=== PATIENT | female | born 1955 | race Caucasian/White ===

== ENCOUNTER → 2022-07-05 | Outpatient (CLI) | payer MEDICARE ==
[~2022-07-05] MED LIST: CATHETER FLUSH 10 ML SYR IVP PRN; REGADENOSON 0.4 MG/5 ML SYR (LEXISCAN) IV ONE
[2022-07-05 12:54] VITALS: BP 155/91
--- NOTE | 2022-07-06 07:48 | Cardiology Stress Test Report ---
Stress Test Report Date of Procedure/Referring: Date of Procedure: Jul 05, 2022 PCP Arnulfo Pedraza MD Admitting Physician Admitting Physician: Attending Physician: Corazon Salamanca MD Indications: CP Baseline Heart Rate: 75 Baseline Blood Pressure: Blood Pressure Systolic: 155 Blood Pressure Diastolic: 91 Baseline Vitals Vital Signs Date Time Temp Pulse Resp B/P (MAP) Pulse Ox O2 Delivery O2 Flow Rate FiO2 07/05/22 12:54 75 155/91 (112) 98 Baseline EKG: Baseline EKG: NSR Summary After explaining the procedure to the patient, she signed a consent and then brought to the stress nuclear laboratory. Patient received 0.4 mg Lexiscan for stress test, ECG, heart rate and blood pressure were monitored continuously. Resting and stress dose of radio tracer were injected, imaging was acquired and reviewed in short axis, horizontal long axis and vertical long axis views. TID: 1.14 SSS: 10 SDS: 4 EF: 52 1. Patient tolerated Lexiscan well 2. Breast attenuation with reversible ischemia involving the mid to apical inferior wall and inferoseptum 3. Normal left ventricular size, ejection fraction 52% CORAZON SALAMANCA MD Jul 06, 2022 07:48
== END ==
LOC: CARD 10:14
PROVIDERS: ATTEND Internal Medicine Cardiovascular Disease
DX: I10 Essential (primary) hypertension (principal); I25.10 Atherosclerotic heart disease of native coronary artery without angina pectoris
CPT/HCPCS: 78452; 93017; A9502; C8929; 93306

== ENCOUNTER 2022-07-19 10:58 | Day surgery (SDC) | payer MEDICARE ==
[~2022-07-19] VITALS: Ht 165.1 cm; Wt 114.3 kg
[2022-07-19] MEDS ORDERED: NS IV 1000 ML 1,000 ML IV SCH ×2 (11:15→13:30)
[2022-07-19] MEDS ORDERED: LIDOCAINE 1% INJ 30 ML (XYLOCAINE) VIAL ONE (11:18)
[2022-07-19] MEDS ORDERED: HEParin (CATH LAB) 2,000 ML IV ONE (11:19)
[2022-07-19] MEDS ORDERED: NS IV 1000 ML 1,000 ML ONE (11:19)
[2022-07-19 11:31] VITALS: BP 148/123
[2022-07-19 11:42] LABS: BILIRUBIN,URINE NEGATIVE (NEGATIVE); CLARITY,URINE CLEAR; COLOR,URINE YELLOW; GLUCOSE, URINE (UA) NEGATIVE (NEGATIVE); HEMATOCRIT 47 % (35-52); HEMOGLOBIN 15.7 g/dL (11.5-16.0); KETONES,URINE NEGATIVE (NEGATIVE); LEUKOCYTE ESTERASE ,URINE NEGATIVE (NEGATIVE); MEAN CORPUSCULAR HEMOGLOBIN 30 pg (25-34); MEAN CORPUSCULAR HGB CONC 33 g/dL (32-36); MEAN CORPUSCULAR VOLUME 91 fL (80-99); MEAN PLATELET VOLUME 9.3 fL (9.0-12.2); NITRITE,URINE NEGATIVE (NEGATIVE); PLATELET COUNT 275 10^3/uL (130-400); PROTEIN,URINE NEGATIVE (NEGATIVE); WHITE BLOOD COUNT 8.4 10^3/uL (4.3-11.0)
--- NOTE | 2022-07-19 11:42 | Diagnostic Imaging Report ---
INDICATION: Abnormal stress test. FINDINGS: Heart and lungs appear normal. No failure, effusion, or pneumothorax. IMPRESSION: Negative. Dictated by: Dictated on workstation # [id number]
[2022-07-19 11:59] LABS: BACTERIA,URINE NEGATIVE /HPF
[2022-07-19 12:05] LABS: INR 0.9 (0.8-1.4); PROTHROMBIN TIME PATIENT 12.6 SEC (12.2-14.7)
[2022-07-19 12:06] LABS: ALBUMIN 4.3 GM/DL (3.2-4.5); BILIRUBIN,TOTAL 0.5 MG/DL (0.1-1.0); CALCIUM 9.5 MG/DL (8.5-10.1); CREATININE SERUM 0.97 MG/DL (0.60-1.30); POTASSIUM 4.3 MMOL/L (3.6-5.0)
[2022-07-19] MEDS ORDERED: GABA-490 PO (12:19)
[2022-07-19] MEDS ORDERED: MELO15TA39 PO (12:19)
[2022-07-19] MEDS ORDERED: MEMA28CA16 PO (12:19)
[2022-07-19] MEDS ORDERED: ATOR20TA66 PO (12:19)
[2022-07-19] MEDS ORDERED: MIRA50TA PO (12:19)
[2022-07-19] MEDS ORDERED: CALC600T91 PO (12:19)
[2022-07-19] MEDS ORDERED: MULT-1136 PO (12:19)
[2022-07-19] MEDS ORDERED: SERT-413 PO (12:20)
[2022-07-19] MEDS ORDERED: ASPI-1238 PO (12:20)
[2022-07-19] MEDS ORDERED: OMEP40CA6 PO (12:20)
[2022-07-19] MEDS ORDERED: RIVA4.5C17 PO (12:20)
[2022-07-19] MEDS ORDERED: ASCO500T17 PO (12:20)
[2022-07-19] MEDS ORDERED: IBUP200C92 PO (12:20)
[2022-07-19] MEDS ORDERED: TRIA1CAP84 PO (12:20)
[2022-07-19] MEDS ORDERED: CHOL500044 PO (12:20)
[2022-07-19] MEDS ORDERED: PHYT100T PO (12:23)
--- NOTE | 2022-07-19 12:32 | Cardiac Procedure Note-CS/ASA ---
Pre-Procedure Note Pre-Op Procedure Note Date of Available H&P: Jul 10, 2022 Date H&P Reviewed: Jul 19, 2022 Time H&P Reviewed: 12:31 History & Physical: H&P Reviewed, Patient Examed, No changes noted Pre-Operative Diagnosis: Coronary artery disease Conscious Sedation Pre-Proced Time 12:31 ASA Score 3 For ASA 3 and 4: Consider anesthesia and medical clearance. Also, for patients with a history of failed moderate sedation consider anesthesia. Airway Lungs Heart ASA score ASA 1: a normal healthy patient ASA 2: a patient with a mild systemic disease (mid diabetes, controlled hypertension, obesity ASA 3: a patient with a severe systemic disease that limits activity (angina, COPD, prior Myocardial infarction) ASA 4: a patient with an incapacitating disease that is a constant threat to life (CHF, renal failure) ASA 5: a moribund patient not expected to survive 24 hrs. (ruptured aneurysm) ASA 6: a declared brain- patient whose organs are being harvested. For emergent operations, add the letter E after the classification Mallampati Classification Grade 3 Sedation Plan Analgesia, Amnesia, Plan communicated to team members, Discussed options with patient/fam, Discussed risks with patient/fam The patient is an appropriate candidate to undergo the planned procedure, sedation, and anesthesia. The patient immediately re-assessed prior to indication. CORAZON CURTIS MD Jul 19, 2022 12:31
[2022-07-19] MEDS ORDERED: NITRO DRIP 25000 MCG/D5W 250 ML IV ONE (12:37)
[2022-07-19] MEDS ORDERED: MIDAZOLAM 2 MG/2 ML (VERSED) VIAL ONE (12:37)
[2022-07-19] MEDS ORDERED: VERAPAMIL 5 MG/2 ML (CALAN) VIAL IV ONE (12:37)
[2022-07-19] MEDS ORDERED: fentaNYL INJ 100 MCG/2 ML AMP ONE (12:37)
[2022-07-19] MEDS ORDERED: HEParin 1000 UNIT/ML (10ML VIAL) FOR BOLUS ONE (12:37)
--- NOTE | 2022-07-19 13:17 | Discharge Inst-Post CATH ---
Discharge Inst-CATH/EP Problems Reviewed?: Yes Post Cardiac Cath/EP D/C Inst Follow Up/Plan Appointment with Dr. Salamanca's office in 2 to 4 weeks <b>CARDIAC CATH/EP PROCEDURE DISCHARGE INSTRUCTIONS</b> ACTIVITY * Go Home directly and rest. * Limit activity of the leg (or wrist if it was used) for 7 days including aer obics, swimming, jogging, bicycling, etc. * Restrict stair-climbing for 7 days if possible, if not, climb up with your non-cath leg, then bring together on the same step. * Avoid lifting, pushing, pulling or excessive movement of the affected extremi ty for 7 days. * Customary sexual activity may be resumed after 2 days-use caution not to use a position that strains or causes pain to the affected extremity. * No driving for 24 hours. * NO SMOKING. * Avoid straining for bowel movements for 7 days. * Gentle walking on level ground is allowed. * Returning to work will depend on the type of procedure and the results. Your doctor will discuss this with you. CALL YOUR DOCTOR FOR ANY OF THE FOLLOWING: *If bleeding from the puncture site occurs- Apply gentle pressure to site with clean cloth and call your doctor or EMS. * If a knot or lump forms under the skin, increases in size, or causes pain. * If bruising appears to be worsening or moving further down your leg instead of disappearing. * Temperature above 101 F. CARE OF YOUR GROIN INCISION; * Bruising or purple discoloration of the skin near the puncture site is common. * You may shower only, no bathtub bathing for 5 days. Be careful to avoid slipping as your leg may feel stiff. * If a closure device was used on your femoral artery, please see the attached guide regarding care of the device and your leg. * Leave dressing on FOR 24 hours. CARE OF YOUR WRIST INCISION; * Bruising or purple discoloration of the skin near the puncture site is common. * You may shower. * DO NOT submerge wrist. * Leave dressing on FOR 24 hours. CORAZON SALAMANCA MD Jul 19, 2022 13:17
--- NOTE | 2022-07-19 13:21 | Cardiac Cath Report ---
Cardiac Cath Report Physician (s)/Artifacts Conservator (s) Physician CORAZON CURTIS MD Pre-Procedure Diagnosis Pre-Procedure Diagnosis: Coronary artery disease Post-Procedure Note Procedure Start Date: Jul 19, 2022 Name of Procedure: Left heart catheterization Findings/Procedure Note PROCEDURE NOTE: 66-year-old lady with history of hypertension, hyperlipidemia, had an abnormal stress test, scheduled for cardiac catheterization possible PTCA. After explaining the procedure to the patient, all pros and cons were explained, all questions were answered. The patient signed the consent and then she was placed on the cardiac catheterization laboratory. Groin was prepped SL fashion local anesthesia was used. Sheath placed in the right radial artery, [place] catheter was advanced to the left ventricular cavity, pressure was measured, pullback LV to aorta was done, engaged the right and left coronary system. Angiogram was done. At the end of the procedure the sheath was removed. Vascular band was used FINDINGS: Hemodynamics LV 113/8 Aorta no significant gradient during pullback ANATOMY: Left Main is free of obstructive disease Left Anterior Descending has mild irregularities with no obstructive disease Left Circumflex is dominant artery with mild irregularity with no obstructive disease Right Coronary Artery is nondominant artery with no obstructive disease LV Gram was not done, pressure was measured CONCLUSION: 1. Dominant circumflex system with mild irregularity in the coronary system, no significant obstructive disease was noted 2. Normal left ventricular end-diastolic pressure DISCUSSION AND RECOMMENDATION: No intervention is warranted Anesthesia Type: Conscious Sedation Estimated blood loss (mL): 10 ml Contrast Amount: 24 ml Total Radiation Dose: 188 mGy Post-Procedure Diagnosis Post-operative diagnosis: Chest pain Coronary artery disease Hypertension Hyperlipidemia. CORAZON CURTIS MD Jul 19, 2022 13:21
== END 2022-07-19 17:00 | disposition home or self-care (01) ==
LOC: CATH 10:58 → CSD 13:42 → CATH 17:00
PROVIDERS: ATTEND Internal Medicine Cardiovascular Disease
DX: I25.10 Atherosclerotic heart disease of native coronary artery without angina pectoris (principal); I10 Essential (primary) hypertension; F17.210 Nicotine dependence, cigarettes, uncomplicated; I65.23 Occlusion and stenosis of bilateral carotid arteries; G47.33 Obstructive sleep apnea (adult) (pediatric); R60.0 Localized edema; Z79.899 Other long term (current) drug therapy; E78.2 Mixed hyperlipidemia
CPT/HCPCS: 71045; 80053; 80061; 81000; 85027; 85610; 85730; 87081; 93005; 93458; C1894; 36415

== ENCOUNTER → 2022-11-28 | Outpatient (CLI) | payer MEDICARE ==
[~2022-11-28] MED LIST changes: +ASCO500T17 PO; +ASPI-1238 PO; +ATOR20TA66 PO; +CALC600T91 PO; -CATHETER FLUSH 10 ML SYR IVP PRN; +CHOL500044 PO; +GABA-490 PO; +IBUP200C92 PO; +MELO15TA39 PO; +MEMA28CA16 PO; +MIRA50TA PO; +MULT-1136 PO; +OMEP40CA6 PO; +PHYT100T PO; -REGADENOSON 0.4 MG/5 ML SYR (LEXISCAN) IV ONE; +RIVA4.5C17 PO; +SERT-413 PO; +TRIA1CAP84 PO
--- NOTE | 2022-11-28 15:39 | Diagnostic Imaging Report ---
EXAMINATION: Lumbar spine radiographs, 3 views. COMPARISON: None. HISTORY: 67-year-old female, low back pain. FINDINGS: There is a thoracolumbar dextroscoliosis. There are multilevel endplate degenerative related changes of the thoracolumbar spine. There is moderate to severe disc height loss at L2-L3. There is moderate to severe disc height loss at L5-S1. There is no identified compression deformity or fracture. The sacroiliac joints are unremarkable in appearance. There are vascular calcifications. IMPRESSION: 1. Thoracolumbar dextroscoliosis. 2. Multilevel disc degenerative changes of the lumbar spine most notable at L2-L3. 3. No identified compression deformity or fracture. Dictated by: Dictated on workstation # [id number]
== END ==
LOC: RAD FS 11:18
PROVIDERS: ATTEND Nurse Practitioner Family
DX: M51.36 Other intervertebral disc degeneration, lumbar region (principal); M41.85 Other forms of scoliosis, thoracolumbar region
CPT/HCPCS: 72100

== ENCOUNTER → 2023-04-06 | Outpatient (CLI) | payer MEDICARE ==
--- NOTE | 2023-04-06 16:14 | Diagnostic Imaging Report ---
PROCEDURE: MRI lumbar spine. TECHNIQUE: Multiplanar, multisequence MRI of the lumbar spine was performed without contrast. INDICATION: Chronic low back pain Lumbar spine MRI without contrast 04/06/2023 COMPARISON: None. FINDINGS: There is T2 hyperintensity along the endplates at the L2-L3 level with edema along the inferior endplate of L2 and the superior endplate at L3 more pronounced at L3. There is either a large Schmorl's node along the superior endplate versus a mild compression deformity. If this does represent a compression fracture it involves approximately 10% of the height of the vertebral body. Correlate with patient's symptoms. Remaining vertebral body heights are maintained with no subluxations. The tip of the conus is unremarkable in appearance and location. L1-L2: There is moderate bilateral neural foraminal narrowing with the central canal patent. L2-L3: There is intervertebral disc space narrowing, disc desiccation with minimal left paracentral broad-based bulging disc. There is bilateral facet hypertrophy. No central stenosis. There is moderate left and [id number] right neural foraminal narrowing L3-L4: There is minimal broad-based bulging disc material with bilateral facet and ligamentum flavum hypertrophy. Findings cause minimal narrowing of the lateral recesses without central stenosis. There is severe bilateral neural foraminal narrowing. L4-L5: There is disc desiccation with mild broad-based bulging disc material. There is bilateral facet and ligamentum flavum hypertrophy with mild central stenosis. There is moderate to severe bilateral neural foraminal narrowing. L5-S1: There is intervertebral disc space narrowing and disc desiccation and a left paracentral broad-based bulging disc with bilateral facet and ligamentum flavum hypertrophy. Findings cause moderate central stenosis with narrowing of the left lateral recess. There is severe bilateral neural foraminal narrowing. Visualized intra-abdominal structures unremarkable. IMPRESSION: 1. Multilevel degenerative findings, as detailed above. 2. Minimal questioned loss of height along the superior endplate at L3 which could be due to a large Schmorl's node but given the surrounding edema, a mild compression deformity not excluded. Correlate with patient symptoms. Dictated by: Dictated on workstation # [id number]
--- NOTE | 2023-04-06 22:30 | Diagnostic Imaging Report ---
PROCEDURE: MR imaging cervical spine without contrast. TECHNIQUE: Multiplanar, multisequence MR imaging of the cervical spine was performed without contrast. INDICATION: Cervical spondylosis. COMPARISON: None. FINDINGS: Cervical spinal cord has a normal volume morphology and normal signal intensity. There is no paravertebral mass, hemorrhage or acute fluid collection. The alignment is normal. The vertebral statures are normal. The marrow signal intensity normal. No bone contusion, marrow edema or fracture pattern. Craniocervical relationship of C1-C2, C2-C3 and C3-C4 levels and discs normal. No stenosis. C4-C5: There is disc stature loss, desiccation, bulge and endplate osteophytes. Osteophyte disc material indents the ventral thecal sac with moderate spinal canal stenosis and mild left greater than right foraminal narrowing. C5-C6: Mild degenerative disc and endplate changes are present without disc displacement or resultant stenosis. C6-C7: There is slight disc desiccation and mild anterior greater than posterior disc bulge. There is a mild degree of left foraminal narrowing. The canal shows no significant stenosis. C7-T1: This level and disc normal. No stenosis. IMPRESSION: Mid to lower cervical spondylosis with mild to moderate stenoses of canal and foramina, detailed above, however normal alignment and normal cord. No acute bony abnormality. Dictated on workstation # [id number]
== END ==
LOC: RAD 13:09
PROVIDERS: ATTEND Nurse Practitioner
DX: M47.812 Spondylosis without myelopathy or radiculopathy, cervical region (principal); M48.02 Spinal stenosis, cervical region; M50.321 Other cervical disc degeneration at C4-C5 level; M50.323 Other cervical disc degeneration at C6-C7 level; M48.062 Spinal stenosis, lumbar region with neurogenic claudication; M51.36 Other intervertebral disc degeneration, lumbar region; M47.816 Spondylosis without myelopathy or radiculopathy, lumbar region
CPT/HCPCS: 72141; 72148

== ENCOUNTER 2023-07-23 12:35 | Emergency (ER) | payer MEDICARE ==
[~2023-07-23] VITALS: Ht 165.1 cm; Wt 118.6 kg
[~2023-07-23 12:35] MED LIST changes: -GABA-490 PO; +GABA-491 PO
[2023-07-23] MEDS ORDERED: NS IV 500 ML 500 ML IV STA (13:02)
[2023-07-23 13:11] LABS: BILIRUBIN,URINE NEGATIVE (NEGATIVE); CLARITY,URINE CLEAR; COLOR,URINE YELLOW; GLUCOSE, URINE (UA) NEGATIVE (NEGATIVE); KETONES,URINE NEGATIVE (NEGATIVE); LEUKOCYTE ESTERASE ,URINE NEGATIVE (NEGATIVE); NITRITE,URINE NEGATIVE (NEGATIVE); PROTEIN,URINE NEGATIVE (NEGATIVE)
--- NOTE | 2023-07-23 13:12 | ED General ---
General Chief Complaint: Dizziness/Syncope Stated Complaint: DIZZINESS; LOW BP Source of Information: Patient Exam Limitations: No Limitations History of Present Illness Date Seen by Provider: Jul 23, 2023 Time Seen by Provider: 12:37 Initial Comments 67-year-old female with past medical history most notable for demetia coming in due to lightheadedness, room spinning at times, and ear ringing. Started this morning around 3 AM. She says the ringing in her right ear is pretty normal as she has a hole in that tympanic membrane, but the ringing in the left ear is new. She has a very mild headache she states. Denies any weakness, numbness, current vision changes, voice changes, or any other concerns. She was able to walk to her car, drive here, and then walked back to the room in the ER. Denies any significant pain anywhere. I discussed the case with the patient's son, who she lives with. He states she gets this way every once in a while if she misses a couple doses of her medications. Allergies and Home Medications Allergies Coded Allergies: No Known Drug Allergies (Unverified , 07/23/23) Patient Home Medication List Home Medication List Reviewed: Yes Ascorbic Acid (Vitamin C) 500 Mg Tablet, 500 MG PO DAILY, (Reported) Entered as Reported by: CHRISTA SHI on 07/19/22 1220 Aspirin (Aspirin EC) 81 Mg Tablet.dr, 81 MG PO DAILY, (Reported) Entered as Reported by: CHRISTA SHI on 07/19/22 1220 Atorvastatin Calcium (Atorvastatin Calcium) 20 Mg Tablet, 20 MG PO DAILY, (Reported) Entered as Reported by: CHRISTA SHI on 07/19/22 1219 Calcium Carbonate (Calcium) 600 Mg Calcium (1500 Mg) Tablet, 600 MG PO DAILY, (Reported) Entered as Reported by: CHRISTA SHI on 07/19/22 1219 Cholecalciferol (Vitamin D3) (Vitamin D3) 125 Mcg (5000 Unit) Tablet, 125 MCG PO DAILY, (Reported) Entered as Reported by: CHRISTA SHI on 07/19/22 1220 Gabapentin (Gabapentin) 400 Mg Capsule, 400 MG PO HS, (Reported) Entered as Reported by: CHRISTA SHI on 07/19/22 1219 Ibuprofen (Advil Liqui-Gels) 200 Mg Capsule, 400-600 MG PO Q6H, (Reported) Entered as Reported by: CHRISTA SHI on 07/19/22 122 Meloxicam (Meloxicam) 15 Mg Tablet, 15 MG PO DAILY, (Reported) Entered as Reported by: CHRISTA SHI on 07/19/22 121 Memantine HCl (Memantine HCl ER) 28 Mg Cap.spr.24, 28 MG PO DAILY, (Reported) Entered as Reported by: CHRISTA SHI on 07/19/22 121 Mirabegron (Myrbetriq) 50 Mg Tab.er.24h, 50 MG PO DAILY, (Reported) Entered as Reported by: CHRISTA SHI on 07/19/221218 Multivitamin (Multivitamin) 1 Each Tablet, 2 EACH PO DAILY, (Reported) Entered as Reported by: CHRISTA SHI on 07/19/221218 Omeprazole (Omeprazole) 40 Mg Capsule.dr, 40 MG PO DAILY, (Reported) Entered as Reported by: CHRISTA SHI on 07/19/221219 Phytonadione (Vitamin K) 100 Mcg Tablet, 100 MCG PO DAILY, (Reported) Entered as Reported by: CHRISTA SHI on 07/19/22 122 Rivastigmine Tartrate (Rivastigmine) 4.5 Mg Capsule, 4.5 MG PO BID WITH MEALS, (Reported) Entered as Reported by: CHRISTA SHI on 07/19/22 122 Sertraline HCl (Sertraline HCl) 50 Mg Tablet, 50 MG PO DAILY, (Reported) Entered as Reported by: CHRISTA SHI on 07/19/221219 Triamterene/Hydrochlorothiazid (Triamterene-Hctz 37.5-25 mg Cp) 37.5 Mg-25 Mg Capsule, 1 EACH PO DAILY, (Reported) Entered as Reported by: CHRISTA SHI on 07/19/221219 Review of Systems Review of Systems Constitutional: No fever EENTM: see HPI Respiratory: no symptoms reported Cardiovascular: no symptoms reported Gastrointestinal: no symptoms reported Genitourinary: no symptoms reported Musculoskeletal: no symptoms reported Skin: no symptoms reported Psychiatric/Neurological: See HPI Hematologic/Lymphatic: No Symptoms Reported Past Gbfevah-Cwknhs-Rwxchm Hx Patient Social History Tobacco Use?: No Use of E-Cig and/or Vaping dev: No Substance use?: No Alcohol Use?: No Pt feels they are or have been: Unable to obtain Immunizations Up To Date Influenza Vaccine Up-to-Date: No; Not Current First/Initial COVID19 Vaccinat: not vacc Past Medical History Tubal Ligation Sleep Apnea Physical Exam Vital Signs Vital Signs - First Documented 07/23/23 12:40 Temp 37.0 Pulse 83 Resp 20 B/P (MAP) 175/113 (133) Pulse Ox 97 O2 Delivery Room Air Capillary Refill : Height, Weight, BMI Height: '" Weight: lbs. oz. kg; 41.93 BMI Method: General Appearance: No Apparent Distress, WD/WN Eyes: Bilateral Eye Normal Inspection, Bilateral Eye PERRL, Bilateral Eye EOMI HEENT: PERRL/EOMI, Pharynx Normal, Other (tympanic membrane rupture on the right) Neck: Full Range of Motion, Normal Inspection, Non Tender, Supple Respiratory: Chest Non Tender, Lungs Clear, Normal Breath Sounds, No Accessory Muscle Use, No Respiratory Distress Cardiovascular: Regular Rate, Rhythm, No Edema, Normal Peripheral Pulses Gastrointestinal: Normal Bowel Sounds, Non Tender, Soft; No Distended, No Guarding Back: Normal Inspection, No CVA Tenderness, No Vertebral Tenderness Extremity: Normal Capillary Refill, Normal Inspection, Normal Range of Motion, Non Tender, No Calf Tenderness, No Pedal Edema Neurologic/Psychiatric: Alert, Oriented x3, No Motor/Sensory Deficits, Normal Mood/Affect, shingle carrier II-XII Norm as Tested, Other (normal finger to nose, normal heel to beard, normal visual doyle and visual acuity) Skin: Normal Color, Warm/Dry Progress/Results/Core Measures Suspected Sepsis SIRS Temperature: Pulse: Respiratory Rate: Laboratory Tests 07/23/23 12:50: White Blood Count 9.5 Blood Pressure / Mean: Laboratory Tests 07/23/23 12:50: Creatinine 1.17, INR Comment 0.8, Platelet Count 308, Total Bilirubin 0.4 Results/Orders Lab Results Laboratory Tests Test 07/23/23 12:43 07/23/23 12:50 07/23/23 12:54 Range/Units Urine Color YELLOW Urine Clarity CLEAR Urine pH 6.0 5-9 Urine Specific [place] 1.015 L 1.016-1.022 Urine Protein NEGATIVE NEGATIVE Urine Glucose (UA) NEGATIVE NEGATIVE Urine Ketones NEGATIVE NEGATIVE Urine Nitrite NEGATIVE NEGATIVE Urine Bilirubin NEGATIVE NEGATIVE Urine Urobilinogen 0.2 < = 1.0 MG/DL Urine Leukocyte Esterase NEGATIVE NEGATIVE Urine RBC (Auto) NEGATIVE NEGATIVE Urine RBC NONE /HPF Urine WBC 0-2 /HPF Urine Squamous Epithelial Cells 2-5 /HPF Urine Crystals NONE /LPF Urine Bacteria NEGATIVE /HPF Urine Casts NONE /LPF Urine Mucus SMALL H /LPF Urine Culture Indicated NO White Blood Count 9.5 4.3-11.0 10^3/uL Red Blood Count 4.88 3.80-5.11 10^6/uL Hemoglobin 14.7 11.5-16.0 g/dL Hematocrit 45 35-52 % Mean Corpuscular Volume 91 80-99 fL Mean Corpuscular Hemoglobin 30 25-34 pg Mean Corpuscular Hemoglobin Concent 33 32-36 g/dL Red Cell Distribution Width 12.5 10.0-14.5 % Platelet Count 308 130-400 10^3/uL Mean Platelet Volume 9.5 9.0-12.2 fL Immature Granulocyte % (Auto) 0 % Neutrophils (%) (Auto) 64 42-75 % Lymphocytes (%) (Auto) 27 12-44 % Monocytes (%) (Auto) 8 0-12 % Eosinophils (%) (Auto) 2 0-10 % Basophils (%) (Auto) 0 0-10 % Neutrophils # (Auto) 6.0 1.8-7.8 10^3/uL Lymphocytes # (Auto) 2.5 1.0-4.0 10^3/uL Monocytes # (Auto) 0.7 0.0-1.0 10^3/uL Eosinophils # (Auto) 0.1 0.0-0.3 10^3/uL Basophils # (Auto) 0.0 0.0-0.1 10^3/uL Immature Granulocyte # (Auto) 0.0 0.0-0.1 10^3/uL Percent Immature Platelet Fraction 3.0 0.0-7.6 % Prothrombin Time 11.8 L 12.2-14.7 SEC INR Comment 0.8 0.8-1.4 Activated Partial Thromboplast Time 22 L 24-35 SEC Sodium Level 142 135-145 MMOL/L Potassium Level 4.1 3.6-5.0 MMOL/L Chloride Level 102 98-107 MMOL/L Carbon Dioxide Level 28 21-32 MMOL/L Anion Gap 12 5-14 MMOL/L Blood Urea Nitrogen 27 H 7-18 MG/DL Creatinine 1.17 0.60-1.30 MG/DL Estimat Glomerular Filtration Rate 51 BUN/Creatinine Ratio 23 Glucose Level 135 H 70-105 MG/DL Calcium Level 9.8 8.5-10.1 MG/DL Corrected Calcium 9.5 8.5-10.1 MG/DL Total Bilirubin 0.4 0.1-1.0 MG/DL Aspartate Amino Transf (AST/SGOT) 19 5-34 U/L Alanine Aminotransferase (ALT/SGPT) 25 0-55 U/L Alkaline Phosphatase 120 40-136 U/L Troponin I < 0.30 <0.30 NG/ML Total Protein 7.4 6.4-8.2 GM/DL Albumin 4.4 3.2-4.5 GM/DL Glucometer 132 H 70-110 MG/DL My Orders Orders - JUAN RAMON LOPEZ MD Cbc And Automated Diff (07/23/23 13:02) Protime With Inr (07/23/23 13:02) Partial Thromboplastin Time (07/23/23 13:02) Comprehensive Metabolic Panel (07/23/23 13:02) Troponin I Fs (07/23/23 13:02) Ua Culture If Indicated (07/23/23 13:02) Chest 1 View Ap/Pa Only (07/23/23 13:02) Ekg Tracing (07/23/23 13:02) Accucheck Stat ONCE (07/23/23 13:02) Ed Iv/Invasive Line Start (07/23/23 13:02) Vital Signs Stroke Patient Q15M (07/23/23 13:02) Ct Head Wo-R/O Stroke (07/23/23 13:02) O2 (07/23/23 13:02) Monitor-Rhythm Ecg Trace Only (07/23/23 13:02) Ns Iv 500 Ml (Ns Iv 500 Ml) (07/23/23 13:02) Meclizine Tablet (Meclizine Tablet) (07/23/23 13:15) Medications Given in ED Current Medications Medications Dose Ordered Sig/Harvey Route Start Time Stop Time Status Last Admin Dose Admin Meclizine HCl 25 mg ONCE ONCE PO 07/23/23 13:15 07/23/23 13:16 DC 07/23/23 13:11 25 MG Vital Signs/I&O 07/23/23 12:40 Temp 37.0 Pulse 83 Resp 20 B/P (MAP) 175/113 (133) Pulse Ox 97 O2 Delivery Room Air Capillary Refill : Progress Note : Progress Note 67-year-old female with above history coming in due to vertigo-like symptoms. ABCs were intact and vitals were stable on presentation. Physical exam with no acute findings neurologically, NIH is 0. Patient showed up more than 8 hours after her symptoms started as well, even if this was a stroke, she would not qualify for tenecteplase. She also clearly does not have a large vessel occlusion based on her exam, would not qualify or need any type of significant intervention regardless of the diagnosis. Specifically, she has normal feihyg-gh-vzbe, normal tdzb-qo-qldi, normal gait, normal ocular exam including normal visual doyle and visual acuity. She does have ringing in her ears as well which points away from a central cause of vertigo. It is excitatory as well, worsening when she moves her head, improves when she sits still. An IV was placed and basic labs were obtained and were significant for an unremarkable glucose, normal creatinine, negative troponin, normal white blood cell count, normal hemoglobin. Urinalysis without evidence of infection. CT head ordered and interpreted by me showing no intracranial hemorrhage, no large infarct. EKG ordered and interpreted by me showing no acute ischemic changes and it is in sinus rhythm. Chest x-ray ordered and interpreted by me showing no pneumothorax, no pneumonia, normal cardiac silhouette. The patient was given a gentle bolus of IV fluids as well as meclizine. Her exam does fit more of a peripheral cause of vertigo. I will have her follow-up with ENT as an outpatient. The patient ambulated into the ER and out of the ER without difficulty. She also drove here and does have her son here. Based on her exam, I would be okay with her driving. ECG Initial ECG Impression Date: Jul 23, 2023 Initial ECG Impression Time: :23 Initial ECG Rate: 71 Initial ECG Rhythm: Normal Sinus Comment Narrow QRS, normal axis, no significant ST changes or T wave abnormalities Diagnostic Imaging Diagonstic Imaging: Xray (chest), CT (head) Comments NAME: SHIRLENE STARR [facility] REC#: [id number] PT STATUS: REG ER : 1955 PHYSICIAN: JUAN RAMON LOPEZ MD ADMIT DATE: 07/23/23/ER FS Draft Date of Exam:07/23/23 CT HEAD WO-R/O STROKE PROCEDURE: CT head wo r/o stroke. TECHNIQUE: Multiple contiguous axial images were obtained through the brain without the use of intravenous contrast. Auto Exposure Controls were utilized during the CT exam to meet ALARA standards for radiation dose reduction. INDICATION: 67-year-old female presents to the ER with new onset dizziness. COMPARISONS: None. FINDINGS: The midline structures are not displaced. The lateral, third, and fourth ventricles are normal in size, shape, and anatomic position. There is no mass, mass effect, hydrocephalus, or hemorrhage. George-white differentiation is normal. There is no sulcal effacement. There are no abnormal extra-axial fluid collections or hemorrhage. Basilar cisterns appear normal. Sinuses, orbits, and mastoid air cells are unremarkable. Bone windows show no calvarial changes. There is an incidental prominent carla bullosa in the left nasal turbinate. IMPRESSION: Unremarkable nonenhanced CT brain. Dictated on workstation # [id number] Dict: 07/23/23 1325 Trans: 07/23/23 1337 [id number] Interpreted by: REX HEALY MD Electronically signed by: NAME: SHIRLENE STARR REC#: [id number] PT STATUS: REG ER : 1955 PHYSICIAN: JUAN RAMON LOPEZ MD ADMIT DATE: 07/23/23/ER FS Draft Date of Exam:07/23/23 CHEST 1 VIEW AP/PA ONLY INDICATION: Acute neurologic status change. EXAMINATION: Portable chest, 1:32 p.m. FINDINGS: Heart size and pulmonary vascularity are normal. Lungs are clear. There are no effusions or pneumothoraces. IMPRESSION: Unremarkable chest. Dictated on workstation # [id number] Dict: 07/23/23 1343 Trans: 07/23/23 1345 [id number] Interpreted by: KAREL FRANKLIN MD Electronically signed by: Departure Impression Primary Impression: Vertigo Disposition: 01 HOME, SELF-CARE Condition: Stable Departure-Patient Inst. Decision time for Depature: 14:10 Referrals: KATHIE KLEIN APRN (PCP) Primary Care Physician [facility] (Family) Primary Care Physician KARSON MARCANO MD Patient Instructions: Vertigo ED Add. Discharge Instructions: The dizziness you are experiencing seems to be caused by your ear itself. Sometimes it can be caused by the brain, but it does not seem like that is the case today. We do recommend he follow-up with the specialist for this, Dr. Marcano. His number is in the paperwork. Meclizine was sent to your pharmacy as well which can help with the dizziness. Be careful when you take this as it can make you sleepy. JUAN RAMON LOPEZ MD Jul 23, 2023 13:12
[2023-07-23] MEDS ORDERED: MECLIZINE 25 MG TABLET PO ONE (13:15)
[2023-07-23 13:18] LABS: BASOPHILS % (AUTO) 0 % (0-10); EOSINOPHILS # (AUTO) 0.1 10^3/uL (0.0-0.3); EOSINOPHILS % (AUTO) 2 % (0-10); HEMATOCRIT 45 % (35-52); HEMOGLOBIN 14.7 g/dL (11.5-16.0); LYMPHOCYTES # (AUTO) 2.5 10^3/uL (1.0-4.0); LYMPHOCYTES % (AUTO) 27 % (12-44); MEAN CORPUSCULAR HEMOGLOBIN 30 pg (25-34); MEAN CORPUSCULAR HGB CONC 33 g/dL (32-36); MEAN CORPUSCULAR VOLUME 91 fL (80-99); MEAN PLATELET VOLUME 9.5 fL (9.0-12.2); MONOCYTES # (AUTO) 0.7 10^3/uL (0.0-1.0); MONOCYTES % (AUTO) 8 % (0-12); NEUTROPHILS % (AUTO) 64 % (42-75); PLATELET COUNT 308 10^3/uL (130-400); WHITE BLOOD COUNT 9.5 10^3/uL (4.3-11.0)
[2023-07-23 13:23] LABS: BACTERIA,URINE NEGATIVE /HPF; WBC,URINE 0-2 /HPF
[2023-07-23 13:25] LABS: CHLORIDE 102 MMOL/L (98-107); INR 0.8 (0.8-1.4); POTASSIUM 4.1 MMOL/L (3.6-5.0); PROTHROMBIN TIME PATIENT 11.8 SEC (12.2-14.7); SODIUM 142 MMOL/L (135-145)
[2023-07-23 13:29] LABS: CARBON DIOXIDE 28 MMOL/L (21-32)
[2023-07-23 13:31] LABS: ALANINE AMINOTRANSFERASE 25 U/L (0-55); ALKALINE PHOSPHATASE 120 U/L (40-136); BILIRUBIN,TOTAL 0.4 MG/DL (0.1-1.0); BUN/CREATININE RATIO 23; CALCIUM 9.8 MG/DL (8.5-10.1); CREATININE SERUM 1.17 MG/DL (0.60-1.30); GFR ESTIMATED 51; GLUCOSE 135 MG/DL (70-105)
[2023-07-23 13:32] LABS: ALBUMIN 4.4 GM/DL (3.2-4.5); TOTAL PROTEIN 7.4 GM/DL (6.4-8.2)
--- NOTE | 2023-07-23 13:39 | Diagnostic Imaging Report ---
PROCEDURE: CT head wo r/o stroke. TECHNIQUE: Multiple contiguous axial images were obtained through the brain without the use of intravenous contrast. Auto Exposure Controls were utilized during the CT exam to meet ALARA standards for radiation dose reduction. INDICATION: 67-year-old female presents to the ER with new onset dizziness. COMPARISONS: None. FINDINGS: The midline structures are not displaced. The lateral, third, and fourth ventricles are normal in size, shape, and anatomic position. There is no mass, mass effect, hydrocephalus, or hemorrhage. George-white differentiation is normal. There is no sulcal effacement. There are no abnormal extra-axial fluid collections or hemorrhage. Basilar cisterns appear normal. Sinuses, orbits, and mastoid air cells are unremarkable. Bone windows show no calvarial changes. There is an incidental prominent carla bullosa in the left nasal turbinate. IMPRESSION: Unremarkable nonenhanced CT brain. Dictated by: Dictated on workstation # [id number]
--- NOTE | 2023-07-23 13:45 | Diagnostic Imaging Report ---
INDICATION: Acute neurologic status change. EXAMINATION: Portable chest, 1:32 p.m. FINDINGS: Heart size and pulmonary vascularity are normal. Lungs are clear. There are no effusions or pneumothoraces. IMPRESSION: Unremarkable chest. Dictated by: Dictated on workstation # [id number]
[2023-07-23 14:07] VITALS: BP 133/77
== END 2023-07-23 14:06 | disposition home or self-care (01) ==
LOC: EDUNIT# 12:35 → ER FS 12:36
DX: R42 Dizziness and giddiness (principal); H93.13 Tinnitus, bilateral; Z28.310 Unvaccinated for COVID-19
CPT/HCPCS: 36415; 70450; 71045; 80053; 81000; 82947; 84484; 85025; 85610; 85730; 93005; 93041; 96360